=== PATIENT | male | born 1960 | race Caucasian/White ===

== ENCOUNTER 2025-01-12 20:37 | Emergency (ER) | payer OTHER ==
[2025-01-12 20:51] VITALS: RESP 18
--- NOTE | 2025-01-12 21:11 | ED ---
Neck Injury/Pain HPI - General Chief Complaint: Neck Pain/Injury Stated Complaint: neck pain Time Seen by Provider: 01/12/25 20:55 Source: patient, RN notes reviewed Mode of arrival: ambulatory Limitations: no limitations - History of Present Illness Initial Comments: This is a 64-year-old male coming from [facility] with history of GERD presenting for neck pain (9/10) x 2 weeks. Patient endorses pain due to a "slipped disc" with pain radiating to his left arm. States he suspects he may have "slept on his neck wrong". Otherwise denies recent fall/trauma. Endorses use of oxycodone with minimal relief of pain. States he has an MRI for his neck scheduled in 2 weeks. Denies unilateral paresthesia/weakness, vision changes, headache, chest pain, dyspnea, abdominal pain, N/V/D. MD Complaint: neck pain Onset/Timin -: week(s) Severity scale (1-10): 9 Consistency: constant Improves With: immobilization Worsens With: movement of extremity, movement of neck Associated Symptoms: tingling Treatments Prior to Arrival: prescription pain med (Oxycodone) - Related Data Allergies Allergy/AdvReac Type Severity Reaction Status Date / Time No Known Allergies Allergy Verified 01/12/25 20:48 Review of Systems ROS Statement: Those systems with pertinent positive or pertinent negative responses have been documented in the HPI. ROS Other: All systems not noted in ROS Statement are negative. Past Medical History Past Medical History: GERD/Reflux Past Surgical History: No Surgical Hx Reported Past Psychological History: No Psychological Hx Reported Smoking Status: Current some day smoker Past Alcohol Use History: None Reported Past Drug Use History: Marijuana General Exam Limitations: no limitations General appearance: alert, in no apparent distress Head exam: Present: atraumatic, normocephalic, normal inspection Eye exam: Present: normal appearance, PERRL, EOMI. Absent: scleral icterus, conjunctival injection, periorbital swelling ENT exam: Present: normal exam, mucous membranes moist Neck exam: Present: normal inspection. Absent: tenderness, meningismus, lymphadenopathy Respiratory exam: Present: normal lung sounds bilaterally. Absent: respiratory distress, wheezes, rales, rhonchi, stridor Cardiovascular Exam: Present: regular rate, normal rhythm, normal heart sounds. Absent: systolic murmur, diastolic murmur, rubs, gallop, clicks GI/Abdominal exam: Present: soft, normal bowel sounds. Absent: distended, tenderness, guarding, rebound, rigid Extremities exam: Present: normal inspection, full ROM, normal capillary refill. Absent: tenderness, pedal edema, joint swelling, calf tenderness Back exam: Present: muscle spasm, paraspinal tenderness (Positive left paracervical spine spasm and point tenderness), vertebral tenderness (Positive C6/7 TTP) Neurological exam: Present: alert, oriented X3, CN II-XII intact Psychiatric exam: Present: normal affect, normal mood Skin exam: Present: warm, dry, intact, normal color. Absent: rash Course Vital Signs 01/12/25 01/12/25 20:48 21:54 Temperature 97.6 F 98.2 F Pulse Rate 83 72 Respiratory 18 18 Rate Blood Pressure 111/81 102/70 O2 Sat by Pulse 97 98 Oximetry Medical Decision Making - Medical Decision Making Was pt. sent in by a medical professional or institution (, PA, MED SURG RN, urgent care, hospital, or correction...) When possible be specific @ -No Did you speak to anyone other than the patient for history (EMS, parent, family, police, friend...)? What history was obtained from this source @ -No Did you review nursing and triage notes (agree or disagree)? Why? @ -I reviewed and agree with nursing and triage notes Were old charts reviewed (outside hosp., previous admission, EMS record, old EKG, old radiological studies, urgent care reports/EKG's, correction records)? Report findings @ -No old charts were reviewed Differential Diagnosis (chest pain, altered mental status, abdominal pain women, abdominal pain men, vaginal bleeding, weakness, fever, dyspnea, syncope, headache, dizziness, GI bleed, back pain, seizure, CVA, palpatations, mental health, musculoskeletal)? @ -Differential Musculoskeletal Muscular strain, contusion, ligament sprain, fracture, arthritis, septic arthritis, bursitis, cellulitis, muscle spasm, nerve compression, DVT, arterial occlusion, herpes zoster, electrolyte abnormality, tumor.... This is not meant to be in all inclusive list EKG interpreted by me (3pts min.). @ -Not done X-rays interpreted by me (1pt min.). @ -None done CT interpreted by me (1pt min.). @ -None done U/S interpreted by me (1pt. min.). @ -None done What testing was considered but not performed or refused? (CT, X-rays, U/S, labs)? Why? @ -Patient declined all cervical spine imaging, stating he will follow-up for MRI in 2 weeks What meds were considered but not given or refused? Why? @ -None Did you discuss the management of the patient with other professionals (professionals i.e. Dr., PA, MED SURG RN, lab, RT, psych nurse, manager social responsibility, slab stripper, teacher, air defense control officer, spring encaser)? Give summary @ -No Was smoking cessation discussed for >3mins.? @ -No Was critical care preformed (if so, how long)? @ -No Were there social determinants of health that impacted care today? How? (Homelessness, low income, unemployed, alcoholism, drug addiction, transportation, low edu. Level, literacy, decrease access to med. care, fpc, rehab)? @ -No Was there de-escalation of care discussed even if they declined (Discuss DNR or withdrawal of care, Hospice)? DNR status @ -No What co-morbidities impacted this encounter? (DM, HTN, Smoking, COPD, CAD, Cancer, CVA, ARF, Chemo, Hep., AIDS, mental health diagnosis, sleep apnea, morbid obesity)? @ -None Was patient admitted / discharged? Hospital course, mention meds given and route, prescriptions, significant lab abnormalities, going to OR and other pertinent info. @ -Patient initially provided p.o. Tylenol and IM Toradol, morphine along with lidocaine patch with pain relief noted by patient. Patient is requesting discharge prior to cervical spine imaging/x-ray. Discussed patient with Dr. Méndez. Undiagnosed new problem with uncertain prognosis? @ -No Drug Therapy requiring intensive monitoring for toxicity (Heparin, Nitro, Insulin, Cardizem)? @ -No Were any procedures done? @ -No Diagnosis/symptom? @ -Cervical spine sprain Acute, or Chronic, or Acute on Chronic? @ -Acute Uncomplicated (without systemic symptoms) or Complicated (systemic symptoms)? @ -Uncomplicated Side effects of treatment? @ -No Exacerbation, Progression, or Severe Exacerbation? @ -Exacerbation Poses a threat to life or bodily function? How? (Chest pain, USA, NC, pneumonia, PE, COPD, DKA, ARF, appy, cholecystitis, CVA, Diverticulitis, Homicidal, Suicidal, threat to staff... and all critical care pts) @ -No Disposition Clinical Impression: Cervical radiculopathy, Other and unspecified disc disorder of cervical region Disposition: HOME SELF-CARE Condition: Fair Instructions (If sedation given, give patient instructions): Cervical Sprain (ED) Additional Instructions: Cold compress to affected area for 10 minutes up to 4 times daily. Alternate Tylenol/Motrin every 4 hours for pain. Follow-up with PCP for any ongoing or worsening symptoms/pain. Is patient prescribed a controlled substance at d/c from ED?: No Referrals: None,Stated [Primary Care Provider] - 1-2 days Stacey Geronimo DO [Doctor of Osteopathic Medicine] - 1-2 days You Bach MD [STAFF PHYSICIAN] - 1-2 days Time of Disposition: 21:33
[2025-01-12] MEDS: MORPHINE SULFATE 4 MG/ML SYRINGE IM STA (21:24)
[2025-01-12] MEDS: KETOROLAC 15 MG/ML 1 ML VIAL IM STA (21:25)
[2025-01-12] MEDS: LIDOCAINE 4% PATCH TOPICAL ONE (21:28)
[2025-01-12] MEDS: ACETAMINOPHEN TAB 500 MG TAB PO STA (21:29)
[2025-01-12 21:58] VITALS: BP 102/70; PULSE 72; TEMP 98.2
== END 2025-01-12 21:58 | disposition home or self-care (01) ==
LOC: EC 20:37
DX: M54.12 Radiculopathy, cervical region (principal); M50.80 Other cervical disc disorders, unspecified cervical region; F17.200 Nicotine dependence, unspecified, uncomplicated
CPT/HCPCS: 99283; 96372; J2270; J1885

== ENCOUNTER → 2025-01-21 | Outpatient (CLI) | payer OTHER ==
--- NOTE | 2025-01-21 18:45 | MR ---
EXAMINATION TYPE: MR cervical spine wo con DATE OF EXAM: 01/21/2025 5:28 PM COMPARISON: None. CLINICAL INDICATION: Male, 64 years old with history of M54.2 CERVICALGIA, neck pain that radiates do wn left arm for 2 weeks TECHNIQUE: Multi planar, multi sequence imaging was performed utilizing: T1-weighted, T2-weighted, an d turbo inversion recovery imaging of the cervical spine. IV Contrast: mL (None, if empty) FINDINGS: Alignment: The cervical vertebral bodies have preserved heights. Alignment is within normal limits gi gaurang patient positioning. Bones: Bone signal is within normal limits. No abnormal bone marrow edema on inversion recovery seque nces. Cord: The spinal cord is unremarkable with regards to their signal intensity and morphology. Discs: Intervertebral disc signal is maintained. C2-C3: A disc osteophyte complex is present with which mildly impresses upon the spinal cord. No sign ificant Spinal canal stenosis. No neural foraminal stenosis. C3-C4: A disc osteophyte complex is present with which mildly impresses upon the spinal cord. Mild Sp inal canal stenosis. Bilateral facet and uncovertebral joint arthropathy are present with moderate right and mild left neural foraminal stenosis. The left neural foramen is patent. C4-C5: A disc osteophyte complex is present with which mildly impresses upon the spinal cord. No sign ificant Spinal canal stenosis. Bilateral facet and uncovertebral joint arthropathy are present wit h moderate right neural foraminal stenosis. The left neural foramen is patent. C5-C6: No significant disc pathology. The spinal canal is patent. No neural foraminal stenosis. C6-C7: No significant disc pathology. The spinal canal is patent. Bilateral facet and uncovertebral joint arthropathy are present with mild bilateral neural foraminal stenosis. C7-T1: No significant disc pathology. The spinal canal is patent. No neural foraminal stenosis. Other: None. IMPRESSION: 1. No evidence for disc herniation or significant spinal canal stenosis. 2. Moderate disc degeneration with associated osteoarthritic changes. No foraminal stenosis worse at right C3-C4 and C4-C5 with moderate neural foraminal stenosis. [facility], , 01/21/2025 6:43 PM
== END | disposition home or self-care (01) ==
LOC: RADMRIMAIN 16:50
PROVIDERS: ATTEND Family Medicine
DX: M50.31 Other cervical disc degeneration, high cervical region (principal); M47.812 Spondylosis without myelopathy or radiculopathy, cervical region; M99.71 Connective tissue and disc stenosis of intervertebral foramina of cervical region
CPT/HCPCS: 72141

== ENCOUNTER 2025-02-25 11:52 | Emergency (ER) | payer OTHER ==
[2025-02-25 12:03] VITALS: TEMP 97.8
[2025-02-25] MEDS: KETOROLAC 15 MG/ML 1 ML VIAL IVP STA (13:06)
[2025-02-25] MEDS: HYDROmorphone 1 MG/ML 1 ML SYRINGE IVP STA (13:11)
[2025-02-25] MEDS: DEXAMETHASONE SOD PHOSPHATE 10 MG/ML 1 ML VIAL IVP STA (13:13)
[2025-02-25] MEDS: ONDANSETRON 4 MG/2 ML VIAL IVP STA (13:22)
--- NOTE | 2025-02-25 13:25 | ED ---
Back Pain HPI - General Chief Complaint: Back Pain/Injury Stated Complaint: Back pain Time Seen by Provider: 02/25/25 12:00 Source: patient, EMS, RN notes reviewed Limitations: no limitations - History of Present Illness Initial Comments: 64-year-old male presents emergency department with chief complaint of back and neck pain. Patient states that he did injure himself in his shoulder and neck few weeks ago had an MRI and does not know the results. She he states that he is having worsening low back pain into his left hip he denies any bowel, bladder incontinence complaints states no position makes it better but is worse with movement. - Related Data Previous Rx's Medication Instructions Recorded Cyclobenzaprine [Flexeril] 10 mg PO TID PRN #15 tab 02/25/25 HYDROcodone/APAP 7.5-325MG [[place] 1 tab PO Q6HR PRN 3 Days #12 tab 02/25/25 7.5-325] predniSONE 50 mg PO DAILY #5 tab 02/25/25 Allergies Allergy/AdvReac Type Severity Reaction Status Date / Time No Known Allergies Allergy Verified 01/12/25 20:48 Review of Systems ROS Statement: Those systems with pertinent positive or pertinent negative responses have been documented in the HPI. ROS Other: All systems not noted in ROS Statement are negative. Past Medical History Past Medical History: GERD/Reflux Past Surgical History: No Surgical Hx Reported Past Psychological History: No Psychological Hx Reported Smoking Status: Current some day smoker Past Alcohol Use History: None Reported Past Drug Use History: Marijuana General Exam Limitations: no limitations General appearance: alert, in no apparent distress Head exam: Present: atraumatic, normocephalic, normal inspection Eye exam: Present: normal appearance, PERRL, EOMI. Absent: scleral icterus, conjunctival injection, periorbital swelling ENT exam: Present: normal exam, normal oropharynx, mucous membranes moist Neck exam: Present: normal inspection, full ROM. Absent: tenderness, meningismus, lymphadenopathy Respiratory exam: Present: normal lung sounds bilaterally. Absent: respiratory distress, wheezes, rales, rhonchi, stridor Cardiovascular Exam: Present: regular rate, normal rhythm, normal heart sounds. Absent: systolic murmur, diastolic murmur, rubs, gallop, clicks GI/Abdominal exam: Present: soft, normal bowel sounds. Absent: distended, tenderness, guarding, rebound, rigid Neurological exam: Present: alert, oriented X3, CN II-XII intact, reflexes normal. Absent: motor sensory deficit Skin exam: Present: warm, dry, intact, normal color. Absent: rash Course Vital Signs 02/25/25 02/25/25 11:57 13:17 Temperature 97.8 F Pulse Rate 63 67 Respiratory 18 18 Rate Blood Pressure 137/97 151/89 O2 Sat by Pulse 94 L 97 Oximetry Medical Decision Making - Medical Decision Making Was pt. sent in by a medical professional or institution (, PA, MASTER LAY OUT SPECIALIST, urgent care, hospital, or [facility]...) When possible be specific @ -No Did you speak to anyone other than the patient for history (EMS, parent, family, police, friend...)? What history was obtained from this source @ -No Did you review nursing and triage notes (agree or disagree)? Why? @ -I reviewed and agree with nursing and triage notes Were old charts reviewed (outside hosp., previous admission, EMS record, old EKG, old radiological studies, urgent care reports/EKG's, [facility] records)? Report findings @ -Reviewed MRI of cervical spine showing bulging disc, herniated disc Differential Diagnosis (chest pain, altered mental status, abdominal pain women, abdominal pain men, vaginal bleeding, weakness, fever, dyspnea, syncope, headache, dizziness, GI bleed, back pain, seizure, CVA, palpatations, mental health, musculoskeletal)? @ -Differential Back Pain: Strain, zoster, cauda equina syndrome, epidural abscess, vertebral osteomyelitis, discitis, fracture, subluxation, disc herniation, DJD, spinal stenosis, dissection, AAA, pancreatitis, peptic ulcer disease, pyelonephritis, kidney stone, this is not meant to be an all-inclusive list. EKG interpreted by me (3pts min.). @ -None X-rays interpreted by me (1pt min.). @ -None done CT interpreted by me (1pt min.). @ -CT of lumbar spine showing degenerative changes, bulging disc, spinal stenosis U/S interpreted by me (1pt. min.). @ -None done What testing was considered but not performed or refused? (CT, X-rays, U/S, labs)? Why? @ -None What meds were considered but not given or refused? Why? @ -None Did you discuss the management of the patient with other professionals ( professionals i.e. Dr., PA, MASTER LAY OUT SPECIALIST, lab, RT, psych nurse, social and human services assistant, clinical systems analyst, teacher, customer service security officer, leather case finisher)? Give summary @ -No Was smoking cessation discussed for >3mins.? @ -No Was critical care preformed (if so, how long)? @ -No Were there social determinants of health that impacted care today? How? (Homelessness, low income, unemployed, alcoholism, drug addiction, transportation, low edu. Level, literacy, decrease access to med. care, [facility], rehab)? @ -No Was there de-escalation of care discussed even if they declined (Discuss DNR or withdrawal of care, Hospice)? DNR status @ -No What co-morbidities impacted this encounter? (DM, HTN, Smoking, COPD, CAD, Cancer, CVA, ARF, Chemo, Hep., AIDS, mental health diagnosis, sleep apnea, morbid obesity)? @ -None Was patient admitted / discharged? Hospital course, mention meds given and route, prescriptions, significant lab abnormalities, going to OR and other pertinent info. @ -Discharged patient presented for low back pain and neck pain been ongoing without acute red flag symptoms. Patient has follow-up was given analgesics and improved at this time. Patient discharged in stable condition Undiagnosed new problem with uncertain prognosis? @ -No Drug Therapy requiring intensive monitoring for toxicity (Heparin, Nitro, Insulin, Cardizem)? @ -No Were any procedures done? @ -No Diagnosis/symptom? @ -Cervical disc issue, lumbar bulging disc Acute, or Chronic, or Acute on Chronic? @ -Acute Uncomplicated (without systemic symptoms) or Complicated (systemic symptoms)? @ -Complicated Side effects of treatment? @ -No Exacerbation, Progression, or Severe Exacerbation? @ -No Poses a threat to life or bodily function? How? (Chest pain, USA, OR, pneumonia, PE, COPD, DKA, ARF, appy, cholecystitis, CVA, Diverticulitis, Homicidal, Robyn cidal, threat to staff... and all critical care pts) @ -No Disposition Clinical Impression: Cervical disc disease, Bulging of lumbar intervertebral disc Disposition: HOME SELF-CARE Condition: Stable Instructions (If sedation given, give patient instructions): Acute Low Back Pain (ED) Additional Instructions: Please return to the Emergency Department if symptoms worsen or any other concerns. Prescriptions: Cyclobenzaprine [Flexeril] 10 mg PO TID PRN #15 tab PRN Reason: Muscle Spasm HYDROcodone/APAP 7.5-325MG [[place] 7.5-325] 1 tab PO Q6HR PRN 3 Days #12 tab PRN Reason: pain predniSONE 50 mg PO DAILY #5 tab Is patient prescribed a controlled substance at d/c from ED?: Yes When asked, does pt state using other controlled substances?: No If prescribed controlled substance>3 days was MAPS reviewed?: Prescribed <3 Days If opioid is for acute pain is fill amount 7 days or less?: Yes If Rx opioid, was Start Talking consent form obtained?: Yes Referrals: Hal Mckeon DO [Primary Care Provider] - 1-2 days [facility] [NON-STAFF] - 1-2 days Henrique Soto DO [Doctor of Osteopathic Medicine] - 1-2 days Time of Disposition: 14:56
--- NOTE | 2025-02-25 14:38 | CT ---
EXAMINATION TYPE: CT lumbar spine wo con DATE OF EXAM: 02/25/2025 2:20 PM COMPARISON: None CLINICAL INDICATION: Male, 64 years old with history of pain; PHH, LOWER BACK PAIN, LIFTED HEAVY OBJE CT TECHNIQUE: Unenhanced CT of the lumbar spine was performed. Bone and soft tissue window settings are submitted as well as coronal and sagittal reconstructions. CT DLP: 978.[address] CTDI: mGy Automated exposure control for dose reduction was used. FINDINGS: The lumbar vertebral segments are normal in height and alignment and there is no fracture or subluxat ion. Disc spaces are well preserved in height and there is no significant degenerative disc disease. There are no large disc protrusions or herniations. The facet joints are minimally degenerated at the L4-5 and L5-S1 levels. The combination with mild circumferential disc bulge and mild thickening of ligamentum flavum, there is mild spinal stenosis at the L3-4 and L4-5 levels. There is no bony neural foraminal encroachment. IMPRESSION: 1. No acute changes within the lumbar spine. No evidence of lumbar spine fracture or large disc herni ation. 2. Mild spinal stenosis at the L3-4 and L4-5 levels. [facility], , 02/25/2025 2:36 PM
[2025-02-25] MEDS: METOCLOPRAMIDE 5 MG/ML 2 ML VIAL IVP STA (15:07)
[2025-02-25] MEDS: diphenhydrAMINE 50 MG/ML 1 ML VIAL IVP STA (15:07)
[2025-02-25 15:24] VITALS: BP 144/84; PULSE 65; RESP 16
== END 2025-02-25 15:55 | disposition home or self-care (01) ==
LOC: EC 11:52
DX: M51.360 Other intervertebral disc degeneration, lumbar region with discogenic back pain only (principal); M50.30 Other cervical disc degeneration, unspecified cervical region; F17.200 Nicotine dependence, unspecified, uncomplicated
CPT/HCPCS: 99284; 96374; 96375; 72131; J1200; J1100; J2765; J2405; J1171; J1885